=== PATIENT | male | born 1995 | race Caucasian/White ===

== ENCOUNTER 2017-05-24 14:52 | Emergency (ER) | payer OTHER ==
[2017-05-24] MEDS ORDERED: Sodium Chloride 0.9% 10 ML Syringe FLUSH PRN (15:09)
[2017-05-24] MEDS ORDERED: Sodium Chloride 0.9% 1,000 ML IV ONE ×2 (15:11→17:08)
[2017-05-24] MEDS ORDERED: HYDROmorphone 1 MG/ML Syringe IVPUSH ONE (15:12)
[2017-05-24] MEDS ORDERED: Ondansetron 4 MG/2 ML SDV IVPUSH ONE (15:17)
[2017-05-24] MEDS ORDERED: Iopamidol 612 MG/ML 100 ML Bottle IVPUSH ONE (15:30)
[2017-05-24] MEDS ORDERED: Sodium Chloride 0.9% 100 ML IV SCH (15:30)
[2017-05-24 15:44] LABS: CHLORIDE,CL 103 mmol/L (98-107); SODIUM,NA 141 mmol/L (136-145)
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
== END 2017-05-24 17:59 | disposition home or self-care (01) ==
LOC: VM.ED 14:52
DX: S06.9X9A Unspecified intracranial injury with loss of consciousness of unspecified duration, initial encounter (principal); S70.12XA Contusion of left thigh, initial encounter; S70.312A Abrasion, left thigh, initial encounter; M54.2 Cervicalgia; V86.06XA Driver of dirt bike or motor/cross bike injured in traffic accident, initial encounter
CPT/HCPCS: 70450; 71010; 71260; 72125; 73552; 74177; 80053; 80305; 81001; 85025; 85610; 96361; 96374; 96375; 99284; J1170; J2405; J7030; J7050; Q9967

== ENCOUNTER 2021-03-18 19:58 | Emergency (ER) | payer OTHER ==
[2021-03-18] MEDS ORDERED: Diphtheria,Pertussis(Acell),Tetanus Vaccine 0.5 ML Syringe IM ONE (20:38)
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
== END 2021-03-18 20:50 | disposition home or self-care (01) ==
LOC: VM.ED 19:58
DX: S51.812A Laceration without foreign body of left forearm, initial encounter (principal); W26.8XXA Contact with other sharp object(s), not elsewhere classified, initial encounter
CPT/HCPCS: 12002; 90471; 90715; 99282-25; 99283